=== PATIENT | male | born 1945 | race Caucasian/White ===

== ENCOUNTER → 2018-08-17 09:24 | Outpatient (CLI) | payer MEDICARE, SELFPAY | PROVIDERS: PCP Family Medicine; Visit Provider Nurse Practitioner Pediatrics | DX: M85.852 Other specified disorders of bone density and structure, left thigh (principal); B20 Human immunodeficiency virus [HIV] disease | CPT/HCPCS: 77080 ==

== ENCOUNTER → 2018-11-27 10:19 | Outpatient (CLI) | payer MEDICARE, SELFPAY ==
--- NOTE | 2018-12-18 15:54 | PM.PFT.1 ---
Pulmonary Function Test Referral & Results Date Patient Seen: 11/27/18 Requesting provider: Tobias Maurice Indication: Chronic bronchitis Results: The spirometry demonstrates an FVC of 3.68 L which is 70% of predicted. The FEV1 was measured at 1.36 L which is 39% of predicted. The FEV1/FVC ratio was 37 which is 50% of predicted. Following the administration of bronchodilator there was no appreciable change. Lung volumes show an SVC of 3.86 L which is 79% of predicted. The diffusing capacity was measured at 27.1 to which is 77% of predicted. No hemoglobin value was provided, so no correction for potential anemia could be made, if appropriate. The maximum voluntary ventilation was reduced Interpretation: This study demonstrates severe obstructive lung disease without evidence of benefit following bronchodilator administration There is also mild restrictive lung disease present There is also slight reduction in diffusing capacity Clinical correlation suggested
== END ==
PROVIDERS: PCP Family Medicine; Visit Provider Internal Medicine Critical Care Medicine
DX: J42 Unspecified chronic bronchitis (principal); R06.09 Other forms of dyspnea
CPT/HCPCS: 94060; 94726; 94729

== ENCOUNTER → 2019-02-18 08:37 | Outpatient (CLI) | payer MEDICARE, SELFPAY ==
--- NOTE | 2019-02-18 | DI.RAD.S_ITS ---
PROCEDURE: XR HIP W PEL IF DONE BILAT 2V INDICATIONS: HIP PAIN TECHNIQUE: AP pelvis with lateral view(s) of both hip(s). COMPARISON: [facility], CR, XR LUMBAR SPINE 2-3V, 02/18/2019, 8:49. FINDINGS: Bones: No fractures or dislocations. Pelvic ring appears intact. No suspicious bony lesions. There is moderate superior joint space narrowing seen of both hips, with associated remodeling changes with subchondral sclerosis and osteophyte formation. Age-appropriate lower lumbar spine degenerative changes are noted. Soft tissues: The visualized bowel gas pattern is normal. No suspicious soft tissue calcifications. 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 Dictated by: Nikolai Bermudez M.D. on 02/18/2019 at 9:00 Approved by: Nikolai Bermudez M.D. on 02/18/2019 at 9:00
--- NOTE | 2019-02-18 | DI.RAD.S_ITS ---
PROCEDURE: XR LUMBAR SPINE 2-3V INDICATIONS: HIP PAIN TECHNIQUE: 3 views of the lumbar spine were acquired. COMPARISON: [facility], CR, CHEST 2 VIEW, 09/27/2011, 10:01. [facility], CT, IVP (ABD & PEL WWO CONTRAST), 12/27/2013, 13:50. [facility], CR, KUB XRAY (1 VIEW ABDOMEN), 01/12/2014, 9:05. [facility], CR, XR HIP W PEL IF DONE BILAT 2V, 02/18/2019, 8:45. FINDINGS: Bones: This patient has transitional lumbar anatomy. For the purposes of this examination, the level with the vestigial ribs is considered to be L1. By this numbering scheme, there is minimal lumbarization of the S1 level, which is better seen on the prior CT. There is minimal levoconvex scoliotic curvature seen. Mild grade 1 anterolisthesis is seen at the L5-S1 level. No associated pars defects are detected. No vertebral body compression fractures. No suspicious bony lesions. There is moderate disc space narrowing at L5-S1. Mild disc space narrowing is seen L4-L5. The disc heights otherwise appear well-preserved. Lower lumbar spine facet arthropathy is seen. Soft tissues: Overlying bowel gas pattern is normal. Gallstones are seen. Additional right upper quadrant calcification is seen, which correlates with right adrenal artery calcification on the prior CT. Atherosclerotic calcification is noted. IMPRESSION: Lower lumbar spine degenerative changes are seen, which are most prominent at the L5-S1 level. Mild grade 1 anterolisthesis is seen at this level. Incidental note is made of: Gallstones Right renal artery calcification Dictated by: Nikolai Bermudez M.D. on 02/18/2019 at 9:00 Approved by: Nikolai Bermudez M.D. on 02/18/2019 at 9:06
== END ==
PROVIDERS: PCP Family Medicine; Referring Provider Chiropractor; Visit Provider Family Medicine
DX: M25.551 Pain in right hip (principal); M16.0 Bilateral primary osteoarthritis of hip; M47.817 Spondylosis without myelopathy or radiculopathy, lumbosacral region; M43.17 Spondylolisthesis, lumbosacral region; K80.20 Calculus of gallbladder without cholecystitis without obstruction
CPT/HCPCS: 72100; 73521

== ENCOUNTER → 2019-07-26 08:44 | Outpatient (CLI) | payer MEDICARE, SELFPAY ==
--- NOTE | 2019-07-26 | DI.ECHO.S_ITS ---
[place] [facility]---------+ [facility] +---------+ : : [address] : : : : [id number] : : : : Phone: [phone] Echocardiogram Report + + :Name: SUKUMAR MALLOY Study Date: 07/26/2019 Height: 72 in : :[facility] Exam Location: IS Weight: 174 lb : : Gender: Male BSA: 2.0 m2 : :: 1945 Age: 74 yrs BP: 142/81 mmHg: :Reason For Study: Dyspnea : :Ordering Physician: Laina : :Parimi Performed By: Haylee Page : + + Interpretation Summary Normal both left and right ventricle size and function. The ejection fraction is 60-65%. Mildly dilated right atrium. Mild aortic valve sclerosis. Pulmonary artery pressures cannot be estimated because of the lack of a measurable TR jet velocity. Procedure: A two-dimensional transthoracic echocardiogram with color flow and Doppler was performed. The study quality was technically adequate. There is no prior echocardiogram noted for this patient. The patient was in normal sinus rhythm during the exam. The heart rate ranged between 56-63 bpm during the study. Left Ventricle: The left ventricle is normal in size. There is normal left ventricular wall thickness. The ejection fraction is estimated to be 60-65%. There are no focal wall motion abnormalities. Diastolic function could not be accurately assessed due to contradictory data. Right Ventricle: The right ventricle is normal in size and function. Atria: The left atrial size is normal. The right atrium is mildly dilated. There is no Doppler evidence for an interatrial shunt. Mitral Valve: The mitral valve is normal in structure and function. There is trace mitral regurgitation. Aortic Valve: The aortic valve is trileaflet. The aortic valve opens well. There is mild aortic valve sclerosis. No aortic regurgitation is present. Tricuspid Valve: The tricuspid valve is normal in structure and function. There is a trace or physiologic amount of tricuspid regurgitation. Pulmonary artery pressures cannot be estimated because of the lack of a measurable TR jet velocity. Pulmonic Valve: The pulmonic valve is not well visualized. There is trace pulmonic regurgitation. Great Vessels: The aortic root is normal size. The ascending aorta could not be visualized. The pulmonary is not well visualized. The IVC is dilated (diameter is greater than 2.1 cm) yet it collapses greater than 50% with a sniff. This suggests a right atrial pressure of 8 mm Hg. Pericardium/ Pleura There is no pericardial effusion. There is no pleural effusion. MMode/2D Measurements & Calculations LVIDd: 4.0 cm LVOT diam: 2.0 cm LVIDs: 3.4 cm Ao root diam: 3.5 cm FS: 16.2 % EPSS: 0.57 cm IVSd: 0.81 cm LVPWd: 0.98 cm LV romero. diameter/BSA (cm/m^2): 2.0 LV sys. diameter/BSA (cm/m^2): 1.7 LA A2 area: 15.7 cm2 RA long axis: 4.5 cm LA A4 area: 20.1 cm2 RA area: 19.7 cm2 LA length (vol): 5.5 cm RA vol: 72.8 ml LA vol: 48.7 ml RA : 36.3 ml/m2 LA vol index: 24.3 ml/m2 IVC diam: 2.2 cm RVD1 (basal): 4.1 cm RVD2 (mid): 3.4 cm TAPSE: 1.9 cm Doppler Measurements & Calculations Ao V2 max: 118.9 cm/sec LVOT Max Deon: 88.4 cm/sec Ao V2 mean: 87.5 cm/sec LV V1 max P.1 mmHg Ao max P.7 mmHg LV V1 VTI: 16.3 cm Ao mean P.3 mmHg VELMA(I,D): 2.2 cm2 Ao V2 VTI: 22.8 cm VELMA(V,D): 2.3 cm2 sev ratio: 0.71 VELMA indexed to BSA (cm^2/m^2): 1.1 MV E max deon: 68.1 cm/sec TR max deon: 189.1 cm/sec MV A max deon: 81.0 cm/sec TR max P.3 mmHg MV E/A: 0.84 PA V2 max: 84.7 cm/sec Med Peak E' Deon: 5.9 cm/sec PA V2 mean: 60.2 cm/sec E/E' med: 11.6 PA mean P.6 mmHg Lat Peak E' Deon: 7.1 cm/sec PA Accel Time: 0.11 sec E/E' lat: 9.6 E/e' average: 10.6 MV P1/2t: 67.6 msec MV P1/2t max deon: 68.7 cm/sec SV(LVOT): 50.8 ml MVA(P1/2t): 3.3 cm2 Electronically signed by: Rishi Greene on Reading Physician:07/26/2019 11:31 AM
--- NOTE | 2019-07-26 | DI.CT.S_ITS ---
PROCEDURE: CT CHEST WO CON INDICATIONS: DYSPNEA TECHNIQUE: Noncontrast 5 mm thick sections acquired from the pulmonary apices to the posterior costophrenic angles. 1 mm lung window, 5 mm thick coronal and sagittal and 7 mm axial MIP reformats were then acquired. For radiation dose reduction, the following was used: automated exposure control, adjustment of mA and/or kV according to patient size. COMPARISON: [facility], CT, IVP (ABD & PEL WWO CONTRAST), 12/27/2013, 13:50. FINDINGS: Image quality: Excellent. Lungs and pleura: No acute consolidation. Scattered scarring/atelectasis. Upper lobe predominant centrilobular emphysema. No pleural effusions or pneumothorax. Nonspecific 3 mm nodule in the left upper lobe, indeterminate Mediastinum: Heart size is normal. Coronary artery calcifications are present. No pericardial effusion. No mediastinal adenopathy by size criteria. Central airway thickening. Thoracic aorta and central pulmonary arteries are normal in size. Esophagus is normal in caliber. No hiatal hernia. Bones and chest wall: No suspicious bony lesions. No vertebral body compression fractures. No axillary or supraclavicular adenopathy by size criteria. Thyroid gland negative. Abdomen: Incidental cholelithiasis. IMPRESSION: No acute consolidation. 3 mm indeterminate nodule seen within the left upper lobe. This could be followup with noncontrast chest CT in one year to document stability and exclude early metastatic or malignant possibilities Upper lobe centrilobular emphysema Scattered scarring and atelectasis. Dictated by: Nicolás Antonio M.D. on 07/26/2019 at 9:38 Approved by: Nicolás Antonio M.D. on 07/26/2019 at 9:47
== END ==
PROVIDERS: PCP Family Medicine; Visit Provider Internal Medicine Critical Care Medicine
DX: I35.8 Other nonrheumatic aortic valve disorders (principal); R91.1 Solitary pulmonary nodule; J43.2 Centrilobular emphysema; R06.00 Dyspnea, unspecified; I25.10 Atherosclerotic heart disease of native coronary artery without angina pectoris; K80.20 Calculus of gallbladder without cholecystitis without obstruction; J98.11 Atelectasis; J98.4 Other disorders of lung
CPT/HCPCS: 71250; 93306

== ENCOUNTER → 2021-02-19 09:46 | Outpatient (CLI) | payer MEDICARE, SELFPAY ==
[2021-02-19 21:38] LABS: Add Manual Diff / Slide Review NO; Basophils Absolute Auto 0 /uL (0-100); Basophils Percent Auto 0.3 % (0-2); Eosinophils Absolute Auto 0 /uL (0-450); Eosinophils Percent Auto 0.1 % (2-4); Hematocrit 48.1 % (41-53); Hemoglobin 16.8 g/dL (13.5-17.5); Lymphocytes Absolute Auto 1800 /uL (1100-4500); Lymphocytes Percent Auto 12.3 % (25-40); Mean Corpuscular HGB Conc 34.8 % (30-36); Mean Corpuscular Hemoglobin 31.8 PG (26-34); Mean Corpuscular Volume 91.3 fL (80-100); Monocytes Absolute Auto 600 /uL (0-900); Neutrophils Absolute Auto 12000 /uL (1500-7000); Neutrophils Percent Auto 83.3 % (50-75); Platelet Count 158 X10^3/uL (150-400); Red Blood Cell Count 5.27 X10^6/uL (4.5-5.9); Red Cell Distribution Width 13.3 % (11.6-14.8); White Blood Cell Count 14.4 X10^3/uL (4.5-11.0)
[2021-02-23 08:36] LABS: Immunoglobulin E 16 IU/mL (6-495)
== END ==
PROVIDERS: PCP Family Medicine; Visit Provider Internal Medicine
DX: J45.40 Moderate persistent asthma, uncomplicated (principal); E78.5 Hyperlipidemia, unspecified
CPT/HCPCS: 82785; 85025

== ENCOUNTER → 2021-02-26 09:14 | Outpatient (CLI) | payer MEDICARE, SELFPAY ==
--- NOTE | 2021-02-26 10:31 | DI.CT.S_ITS ---
PROCEDURE: CT CHEST WO CON INDICATIONS: Other nonspecific abnormal finding of lung field TECHNIQUE: Noncontrast 2.0-2.5 mm thick sections acquired from the pulmonary apices to the posterior costophrenic angles. 7 mm thick axial MIP and 5 mm coronal and sagittal reformats were then acquired. A low radiation dose technique was utilized. COMPARISON: [facility], CT, CT CHEST WO CON, 07/26/2019, 8:47. FINDINGS: Image quality: Diagnostic, given the low radiation dose technique. Lungs and pleura: There is biapical scarring. Moderate centrilobular emphysema is seen predominantly involving bilateral upper lobes. 2.5 millimeter calcified granuloma in anterolateral left upper lobe is again seen and unchanged series 3, image 87. Previously described 3 millimeter left upper lobe nodule is less well defined and measures 2 millimeter on the current study series 3, image 153. Scattered atelectasis in periphery of bilateral lung bhardwaj are seen. No additional pulmonary nodule or mass is seen. Central and peripheral airway is patent. No pleural effusion or pneumothorax. Mediastinum: Heart size is normal. No pericardial effusion. No mediastinal adenopathy by size criteria. Thoracic aorta and central pulmonary arteries are normal in size. [id number] amount of atherosclerotic calcifications are noted in coronary vessels and thoracic aorta. Esophagus is normal in caliber. No hiatal hernia. Bones and chest wall: No suspicious bony lesions. No vertebral body compression fractures. No axillary or supraclavicular adenopathy by size criteria. Thyroid gland is within normal limits. Abdomen: Visualized upper abdomen solid organs and bowel loops appear normal in the absence of contrast. Hepatic steatosis is seen. IMPRESSION: 1. Previously noted 3 millimeter solid nodule is less distinct on the current study and measures 2 mm in size, likely represent benign process. No additional follow-up is indicated at this time. No new pulmonary nodule is seen. Stable calcified granuloma in left upper lobe. 2. Predominantly upper lobe centrilobular emphysema. Biapical scarring. Scattered scarring/atelectasis in bilateral lower lung bhardwaj. 3. Moderate atherosclerotic disease. Fleischner Society criteria for SOLID lung nodule followup. Nodule size (mm)Low-risk patientHigh-risk patient<6 (single or multiple)No routine followup.Optional CT at 12 months. 6-8 (single or multiple)CT at 6-12 months, then optional CT at 18-24 mo.CT at 6-12 months, then CT at 18-24 months. >8 (single)CT at 3 months, PET-CT, or biopsy. Same as for low-risk pts. >8 (multiple)CT at 3-6 months, then optional CT at 18-24 mo.CT at 3-6 months, then CT at 18-24 months. Fleischner Society criteria for SUB-SOLID lung nodule followup. Solitary pure ground-glass nodules<6 mm (ground glass or part solid)No followup needed. 6 mm or larger (ground glass)CT at 6-12 months to confirm persistence, then CT every 2 years until 5 years.6 mm or larger (part solid)CT at 3-6 months to confirm persistence, then annual CT until 5 years if unchanged and solid component remains <6 mm. Multiple sub-solid nodules<6 mmCT at 3-6 months, then CT consider at 2 & 4 years for high risk patients. [address] at 3-6 months. Subsequent management based on most suspicious lesions. Recommendations do not apply to lung cancer screening, patients with immunosuppression, or patients with known primary cancer. Dictated by: Brock Olmstead M.D. on 02/26/2021 at 10:16 Approved by: Brock Olmstead M.D. on 02/26/2021 at 10:57
== END ==
PROVIDERS: Referring Provider Internal Medicine; Visit Provider Internal Medicine
DX: R91.8 Other nonspecific abnormal finding of lung field (principal); J43.2 Centrilobular emphysema; I25.10 Atherosclerotic heart disease of native coronary artery without angina pectoris
CPT/HCPCS: 71250

== ENCOUNTER → 2021-03-23 09:30 | Outpatient (CLI) | payer MEDICARE, SELFPAY ==
[2021-03-23 10:45] LABS: COVID19 -Nasal RAPID Negative (Negative)
== END ==
PROVIDERS: Referring Provider Internal Medicine; Visit Provider Internal Medicine
DX: Z20.822 Contact with and (suspected) exposure to COVID-19 (principal)
CPT/HCPCS: 87635; C9803

== ENCOUNTER → 2021-03-23 09:37 | Outpatient (CLI) | payer MEDICARE, SELFPAY ==
--- NOTE | 2021-03-28 09:12 | PM.PFT.1 ---
Pulmonary Function Test Referral & Results Date Patient Seen: 03/23/21 Requesting provider: Sherman Marshall Indication: COPD Results: The spirometry demonstrates an FVC of 2.83 L which is 61% of predicted. The FEV1 was measured at 0.97 L which is 20% of predicted. The FEV1/FVC ratio was 34 which is 47% of predicted. Following the administration of bronchodilator there was a 29% improvement in FEV1 and an 82% improvement in FEF 25-75%. Lung volumes show an SVC of 3.35 L which is 69% of predicted. The diffusing capacity was measured at 25.2 for which is 72% of predicted. No hemoglobin value was provided, so no correction for potential anemia could be made, if appropriate. The maximum voluntary ventilation was severely reduced Interpretation: This study demonstrates severe obstructive lung disease with FEV1 of less than 1 L. There is evidence of significant benefit following bronchodilator based on improvement in FEV1 and FEF 25-75% as above There is also moderate restrictive lung disease based on reduction SVC There is also a [id number] reduction diffusing capacity suggesting element of disease at the capillary alveolar level Compared to PFTs performed in November 2018, current study shows decline in FEV1, SVC and diffusing capacity Clinical correlation suggested
== END ==
PROVIDERS: Referring Provider Internal Medicine; Visit Provider Internal Medicine
DX: J44.9 Chronic obstructive pulmonary disease, unspecified (principal); Z20.822 Contact with and (suspected) exposure to COVID-19; Z87.891 Personal history of nicotine dependence
CPT/HCPCS: 87635; 94060; 94726; 94729; C9803

== ENCOUNTER → 2021-07-11 09:24 | Outpatient (CLI) | payer MEDICARE, SELFPAY ==
[2021-07-11 19:53] LABS: Add Manual Diff / Slide Review NO; Basophils Absolute Auto 0 /uL (0-100); Basophils Percent Auto 0.2 % (0-2); Eosinophils Absolute Auto 0 /uL (0-450); Hematocrit 50.4 % (41-53); Hemoglobin 17.1 g/dL (13.5-17.5); Lymphocytes Absolute Auto 2700 /uL (1100-4500); Lymphocytes Percent Auto 39.4 % (25-40); Mean Corpuscular HGB Conc 33.9 % (30-36); Mean Corpuscular Hemoglobin 31.4 PG (26-34); Mean Corpuscular Volume 92.7 fL (80-100); Monocytes Absolute Auto 400 /uL (0-900); Monocytes Percent Auto 5.2 % (3-14); Neutrophils Absolute Auto 3800 /uL (1500-7000); Neutrophils Percent Auto 55.2 % (50-75); Platelet Count 164 X10^3/uL (150-400); Red Blood Cell Count 5.44 X10^6/uL (4.5-5.9); Red Cell Distribution Width 13.4 % (11.6-14.8)
[2021-07-11 20:01] LABS: Alanine Aminotransferase 53 IU/L (<50); Albumin 4.9 g/dL (3.5-5.0); Albumin Globulin Ratio 1.6 (1.0-2.8); Alkaline Phosphatase 72 U/L (38-126); Aspartate Aminotransferase 49 IU/L (17-59); BUN Creatinine Ratio 18.9 (6-22); Bilirubin Total 0.6 mg/dL (0.2-1.3); Blood Urea Nitrogen 17 mg/dL (9-20); Calcium 10.6 mg/dL (8.4-10.2); Carbon Dioxide 34 mmol/L (22-32); Chloride 103 mmol/L (98-107); Cholesterol 222 mg/dL (140-199); Estimated Glomerular Filt Rate > 60.0 mL/min (>60); Globulin 3.1 g/dL (1.7-4.1); Glucose 114 mg/dL (80-110); HDL Cholesterol 75 mg/dL (40-60); HEMOLYSIS < 15 (0-50); LDL Cholesterol Calculated 113 mg/dL (<100); Phosphorous 2.2 mg/dL (2.3-3.7); Potassium 4.5 mmol/L (3.4-5.1); Sodium 143 mmol/L (137-145); Triglycerides 170 mg/dL (35-150)
[2021-07-12 16:13] LABS: Absolute CD 4 Helper 705 /uL (359-1519); Eosinophils 0 % (Not Estab.); Hemacrit 49.8 % (37.5-51.0); Hemoglobin 17.3 g/dL (13.0-17.7); Immature Granulocytes 0 % (Not Estab.); Lymphocytes 41 % (Not Estab.); Lymphocytes (Absolute) 2.7 x10E3/uL (0.7-3.1); MCHC 31.5 pg (26.6-33.0); MCHC 34.7 g/dL (31.5-35.7); MCV 91 fL (79-97); Monocytes 5 % (Not Estab.); Monocytes (Absolute) 0.3 x10E3/uL (0.1-0.9); Neutrophils 54 % (Not Estab.); Neutrophils (Absolute) 3.6 x10E3/uL (1.4-7.0); Percent CD 4 Pos Lymph 26.1 % (30.8-58.5); Platelets 166 x10E3/uL (150-450); RDW 12.8 % (11.6-15.4); Red Blood Cells 5.49 x10E6/uL (4.14-5.80); White Blood Cells 6.7 x10E3/uL (3.4-10.8)
[2021-07-12 20:10] LABS: Appearance Urine UA CLEAR; Bilirubin Urine UA NEGATIVE (NEGATIVE); Color Urine UA YELLOW; Glucose Urine UA NEGATIVE (Negative); Ketones Urine UA NEGATIVE (NEGATIVE); Leukocyte Esterase Urine UA NEGATIVE (NEGATIVE); Nitrite Urine UA NEGATIVE (Negative); Occult Blood Urine UA NEGATIVE (Negative); Protein Urine UA NEGATIVE (Negative); Specific Gravity Urine UA 1.015 (1.000-1.035); Urobilinogen Urine UA 0.2 E.U./dL (0.2)
[2021-07-12 20:35] LABS: Calcium Oxalate Crystals Urine Moderate; RBC Urine None Seen (0-5/HPF); WBC Urine None Seen (0-5/HPF)
[2021-07-12 20:36] LABS: Amorphous Sediment Urine 2+; Bacteria Urine None Seen
[2021-07-17 00:28] LABS: HIV-1 RNA by PCR <40 copies/mL (.)
== END ==
PROVIDERS: PCP Family Medicine; Visit Provider Physician Assistant Medical
DX: B20 Human immunodeficiency virus [HIV] disease (principal); E78.00 Pure hypercholesterolemia, unspecified; L98.9 Disorder of the skin and subcutaneous tissue, unspecified
CPT/HCPCS: 80053; 80061; 81001; 84100; 85025; 86361; 87536

== ENCOUNTER → 2022-09-16 11:56 | Outpatient (CLI) | payer MEDICARE, SELFPAY ==
[2022-09-16 19:41] LABS: Appearance Urine UA CLEAR; Bilirubin Urine UA NEGATIVE (NEGATIVE); Color Urine UA YELLOW; Glucose Urine UA NEGATIVE (Negative); Ketones Urine UA NEGATIVE (NEGATIVE); Leukocyte Esterase Urine UA NEGATIVE (NEGATIVE); Nitrite Urine UA NEGATIVE (Negative); Occult Blood Urine UA NEGATIVE (Negative); Protein Urine UA TRACE (Negative); Specific Gravity Urine UA 1.015 (1.000-1.035); Urobilinogen Urine UA 0.2 E.U./dL (0.2); pH Urine UA 7.5 (4.5-8.0)
[2022-09-16 19:53] LABS: Add Manual Diff / Slide Review NO; Basophils Absolute Auto 0 /uL (0-100); Basophils Percent Auto 0.3 % (0-2); Eosinophils Absolute Auto 0 /uL (0-450); Eosinophils Percent Auto 0.3 % (2-4); Hematocrit 50.4 % (41-53); Hemoglobin 17.5 g/dL (13.5-17.5); Lymphocytes Absolute Auto 2300 /uL (1100-4500); Lymphocytes Percent Auto 25.3 % (25-40); Mean Corpuscular HGB Conc 34.7 % (30-36); Mean Corpuscular Hemoglobin 31.5 PG (26-34); Mean Corpuscular Volume 90.8 fL (80-100); Monocytes Absolute Auto 700 /uL (0-900); Monocytes Percent Auto 7.5 % (3-14); Neutrophils Absolute Auto 6000 /uL (1500-7000); Neutrophils Percent Auto 66.6 % (50-75); Platelet Count 192 X10^3/uL (150-400); Red Blood Cell Count 5.55 X10^6/uL (4.5-5.9); White Blood Cell Count 9.1 X10^3/uL (4.5-11.0)
[2022-09-16 19:57] LABS: Cholesterol 242 mg/dL (140-199); HDL Cholesterol 63 mg/dL (40-60); LDL Cholesterol Calculated 144 mg/dL (<100); Phosphorous 3.4 mg/dL (2.3-3.7); Triglycerides 173 mg/dL (35-150)
[2022-09-16 20:00] LABS: Alanine Aminotransferase 28 IU/L (<50); Albumin 4.9 g/dL (3.5-5.0); Albumin Globulin Ratio 1.4 (1.0-2.8); Alkaline Phosphatase 78 U/L (38-126); Aspartate Aminotransferase 28 IU/L (17-59); BUN Creatinine Ratio 20.7 (6-22); Blood Urea Nitrogen 18 mg/dL (9-20); Calcium 10.9 mg/dL (8.4-10.2); Carbon Dioxide 31 mmol/L (22-32); Chloride 98 mmol/L (98-107); Estimated Glomerular Filt Rate > 60 mL/min (>60); Globulin 3.5 g/dL (1.7-4.1); Glucose 106 mg/dL (80-110); HEMOLYSIS < 15 (0-50); Potassium 4.2 mmol/L (3.4-5.1); Sodium 139 mmol/L (137-145); Total Protein 8.4 g/dL (6.3-8.2)
[2022-09-16 20:03] LABS: Amorphous Sediment Urine 2+; Bacteria Urine None Seen; Culture Indicated Urine Cult Not Indicated; RBC Urine None Seen (0-5/HPF); WBC Urine None Seen (0-5/HPF)
[2022-09-18 00:04] LABS: Absolute CD 4 Helper 585 /uL (359-1519); Eosinophils 0 % (Not Estab.); Hemoglobin 17.9 g/dL (13.0-17.7); Immature Granulocytes 0 % (Not Estab.); Lymphocytes 28 % (Not Estab.); Lymphocytes (Absolute) 2.6 x10E3/uL (0.7-3.1); MCHC 31.6 pg (26.6-33.0); MCHC 34.4 g/dL (31.5-35.7); MCV 92 fL (79-97); Monocytes 6 % (Not Estab.); Monocytes (Absolute) 0.6 x10E3/uL (0.1-0.9); Neutrophils 66 % (Not Estab.); Neutrophils (Absolute) 6.2 x10E3/uL (1.4-7.0); Percent CD 4 Pos Lymph 22.5 % (30.8-58.5); Platelets 199 x10E3/uL (150-450); RDW 12.6 % (11.6-15.4); Red Blood Cells 5.67 x10E6/uL (4.14-5.80); White Blood Cells 9.5 x10E3/uL (3.4-10.8)
[2022-09-26 23:08] LABS: HIV-1 RNA by PCR <40 copies/mL (.)
== END ==
PROVIDERS: PCP Family Medicine; Visit Provider Internal Medicine
DX: B20 Human immunodeficiency virus [HIV] disease (principal); E78.00 Pure hypercholesterolemia, unspecified; E78.5 Hyperlipidemia, unspecified
CPT/HCPCS: 80053; 80061; 81001; 84100; 85025; 86361; 87536

== ENCOUNTER → 2023-04-10 11:17 | Outpatient (CLI) | payer MEDICARE, SELFPAY ==
[2023-04-10 19:46] LABS: Add Manual Diff / Slide Review NO; Basophils Absolute Auto 100 /uL (0-100); Basophils Percent Auto 0.9 % (0-2); Eosinophils Absolute Auto 0 /uL (0-450); Eosinophils Percent Auto 0.3 % (2-4); Hematocrit 39.1 % (41-53); Hemoglobin 13.2 g/dL (13.5-17.5); Lymphocytes Absolute Auto 1900 /uL (1100-4500); Lymphocytes Percent Auto 13.5 % (25-40); Mean Corpuscular HGB Conc 33.7 % (30-36); Mean Corpuscular Hemoglobin 29.5 PG (26-34); Mean Corpuscular Volume 87.4 fL (80-100); Monocytes Absolute Auto 800 /uL (0-900); Monocytes Percent Auto 5.6 % (3-14); Neutrophils Absolute Auto 11000 /uL (1500-7000); Neutrophils Percent Auto 79.7 % (50-75); Platelet Count 368 X10^3/uL (150-400); Red Blood Cell Count 4.47 X10^6/uL (4.5-5.9); Red Cell Distribution Width 15.5 % (11.6-14.8); White Blood Cell Count 13.9 X10^3/uL (4.5-11.0)
[2023-04-10 19:54] LABS: Alanine Aminotransferase 97 IU/L (<50); Albumin Globulin Ratio 1.2 (1.0-2.8); Alkaline Phosphatase 121 U/L (38-126); Aspartate Aminotransferase 67 IU/L (17-59); BUN Creatinine Ratio 18.7 (6-22); Bilirubin Total 0.7 mg/dL (0.2-1.3); Blood Urea Nitrogen 14 mg/dL (9-20); Calcium 10.7 mg/dL (8.4-10.2); Carbon Dioxide 35 mmol/L (22-32); Chloride 97 mmol/L (98-107); Estimated Glomerular Filt Rate > 60 mL/min (>60); Globulin 3.4 g/dL (1.7-4.1); Glucose 124 mg/dL (80-110); HEMOLYSIS < 15 (0-50); Magnesium 2.2 mg/dL (1.6-2.3); Potassium 4.2 mmol/L (3.4-5.1); Sodium 139 mmol/L (137-145); Total Protein 7.4 g/dL (6.3-8.2)
[2023-04-10 20:28] LABS: TSH w/ Reflex to FT4 0.46 uIU/mL (0.47-4.68)
[2023-04-10 21:00] LABS: Free T4, Direct Thyroxine 1.33 ng/dL (0.78-2.19)
== END ==
PROVIDERS: PCP Family Medicine; Visit Provider Internal Medicine
DX: E83.52 Hypercalcemia (principal); C34.90 Malignant neoplasm of unspecified part of unspecified bronchus or lung; E78.00 Pure hypercholesterolemia, unspecified
CPT/HCPCS: 80053; 83735; 84439; 84443; 85025

== ENCOUNTER → 2023-05-01 11:33 | Outpatient (CLI) | payer MEDICARE, SELFPAY ==
[2023-05-01 20:12] LABS: Add Manual Diff / Slide Review NO; Alanine Aminotransferase 36 IU/L (<50); Albumin 4.3 g/dL (3.5-5.0); Albumin Globulin Ratio 1.2 (1.0-2.8); Alkaline Phosphatase 100 U/L (38-126); Aspartate Aminotransferase 93 IU/L (17-59); BUN Creatinine Ratio 14.5 (6-22); Basophils Absolute Auto 0 /uL (0-100); Bilirubin Total 0.8 mg/dL (0.2-1.3); Blood Urea Nitrogen 11 mg/dL (9-20); Calcium 10.2 mg/dL (8.4-10.2); Carbon Dioxide 33 mmol/L (22-32); Chloride 97 mmol/L (98-107); Eosinophils Absolute Auto 0 /uL (0-450); Eosinophils Percent Auto 0.7 % (2-4); Estimated Glomerular Filt Rate > 60 mL/min (>60); Globulin 3.7 g/dL (1.7-4.1); Glucose 130 mg/dL (80-110); HEMOLYSIS 31 (0-50); Hematocrit 38.8 % (41-53); Hemoglobin 13.2 g/dL (13.5-17.5); Lymphocytes Absolute Auto 1400 /uL (1100-4500); Lymphocytes Percent Auto 28.9 % (25-40); Mean Corpuscular HGB Conc 33.9 % (30-36); Mean Corpuscular Hemoglobin 29.6 PG (26-34); Mean Corpuscular Volume 87.2 fL (80-100); Monocytes Absolute Auto 300 /uL (0-900); Monocytes Percent Auto 7.1 % (3-14); Neutrophils Absolute Auto 3000 /uL (1500-7000); Neutrophils Percent Auto 62.3 % (50-75); Platelet Count 177 X10^3/uL (150-400); Potassium 4.1 mmol/L (3.4-5.1); Red Blood Cell Count 4.45 X10^6/uL (4.5-5.9); Red Cell Distribution Width 17.1 % (11.6-14.8); Sodium 137 mmol/L (137-145); White Blood Cell Count 4.9 X10^3/uL (4.5-11.0)
[2023-05-01 20:55] LABS: TSH w/ Reflex to FT4 0.82 uIU/mL (0.47-4.68)
== END ==
PROVIDERS: PCP Family Medicine; Visit Provider Internal Medicine
DX: E78.00 Pure hypercholesterolemia, unspecified (principal); C34.90 Malignant neoplasm of unspecified part of unspecified bronchus or lung; E83.52 Hypercalcemia
CPT/HCPCS: 80053; 83735; 84443; 85025

== ENCOUNTER → 2023-05-22 11:25 | Outpatient (CLI) | payer MEDICARE, SELFPAY ==
[2023-05-22 19:46] LABS: Add Manual Diff / Slide Review NO; Basophils Absolute Auto 100 /uL (0-100); Eosinophils Absolute Auto 0 /uL (0-450); Eosinophils Percent Auto 0.5 % (2-4); Hematocrit 37.6 % (41-53); Hemoglobin 12.7 g/dL (13.5-17.5); Lymphocytes Absolute Auto 1800 /uL (1100-4500); Lymphocytes Percent Auto 27.1 % (25-40); Mean Corpuscular HGB Conc 33.8 % (30-36); Mean Corpuscular Hemoglobin 29.1 PG (26-34); Mean Corpuscular Volume 86.1 fL (80-100); Monocytes Absolute Auto 600 /uL (0-900); Monocytes Percent Auto 9.1 % (3-14); Neutrophils Absolute Auto 4100 /uL (1500-7000); Neutrophils Percent Auto 62.3 % (50-75); Platelet Count 279 X10^3/uL (150-400); Red Blood Cell Count 4.36 X10^6/uL (4.5-5.9); Red Cell Distribution Width 17.1 % (11.6-14.8); White Blood Cell Count 6.7 X10^3/uL (4.5-11.0)
[2023-05-22 19:59] LABS: Alanine Aminotransferase 34 IU/L (<50); Albumin Globulin Ratio 1.3 (1.0-2.8); Alkaline Phosphatase 90 U/L (38-126); Aspartate Aminotransferase 48 IU/L (17-59); BUN Creatinine Ratio 18.4 (6-22); Bilirubin Total 0.4 mg/dL (0.2-1.3); Blood Urea Nitrogen 14 mg/dL (9-20); Calcium 9.9 mg/dL (8.4-10.2); Carbon Dioxide 32 mmol/L (22-32); Chloride 99 mmol/L (98-107); Estimated Glomerular Filt Rate > 60 mL/min (>60); Globulin 3.1 g/dL (1.7-4.1); Glucose 187 mg/dL (80-110); HEMOLYSIS 18 (0-50); Magnesium 1.9 mg/dL (1.6-2.3); Potassium 4.3 mmol/L (3.4-5.1); Sodium 138 mmol/L (137-145); Total Protein 7.1 g/dL (6.3-8.2)
[2023-05-22 20:26] LABS: TSH w/ Reflex to FT4 0.77 uIU/mL (0.47-4.68)
== END ==
PROVIDERS: PCP Family Medicine; Visit Provider Internal Medicine
DX: E78.00 Pure hypercholesterolemia, unspecified (principal); E83.52 Hypercalcemia; C34.90 Malignant neoplasm of unspecified part of unspecified bronchus or lung
CPT/HCPCS: 80053; 83735; 84443; 85025